=== PATIENT | male | born 1960 | race Two or more races ===

== ENCOUNTER → 2021-03-30 | Emergency (ER) | payer OTHER ==
[~2021-03-30] MED LIST: CITA10TA70 PO; DOXA1TAB42 PO; MIRT1TAB40 PO
== END | disposition left against medical advice (07) ==
LOC: ER 09:46
DX: Z04.3 Encounter for examination and observation following other accident (principal); Z53.21 Procedure and treatment not carried out due to patient leaving prior to being seen by health care provider; W19.XXXA Unspecified fall, initial encounter; Y93.89 Activity, other specified; Y92.89 Other specified places as the place of occurrence of the external cause; Y99.8 Other external cause status

== ENCOUNTER 2021-05-23 15:24 | Inpatient (IN) | payer OTHER ==
[~2021-05-23] VITALS: Ht 170.2 cm; Wt 94.1 kg
[2021-05-23 16:33] LABS: Basophils # (auto) 0.1 10 ^3/uL (0-0.2); Basophils % (auto) 1.1 % (0.0-2.0); Eosinophils # (auto) 0.3 10 ^3/uL (0-0.8); Hematocrit 40.4 % (41.0-53.0); Hemoglobin 13.3 g/dL (13.5-17.5); Lymphocytes # (auto) 3.2 10 ^3/uL (0.4-5.4); Lymphocytes % (auto) 43.4 % (10.0-50.0); Mean Corpuscular Hemoglobin 25.8 pg (28.0-32.0); Mean Corpuscular Hgb Conc. 32.8 g/dL (32.0-36.0); Mean Corpuscular Volume 78.7 fL (80.0-100.0); Monocytes # (auto) 0.6 10 ^3/uL (0-1.3); Monocytes % (auto) 8.6 % (0.0-12.0); Neutrophils # (auto) 3.2 10 ^3/uL (1.6-8.6); Neutrophils % (auto) 42.9 % (37.0-80.0); Red Blood Cells 5.13 10^6/uL (4.5-5.90); Red Cell Distribution Width 18.4 % (11.8-14.3); White Blood Cell 7.4 10^3/uL (4.4-10.8)
[2021-05-23 16:49] LABS: Albumin 3.7 g/dL (3.4-5.0); Anion Gap 5 (5-15); Blood Urea Nitrogen 10 mg/dL (7-18); Calcium 8.8 mg/dL (8.5-10.1); Carbon Dioxide 26 mmol/L (21-32); Chloride 107 mmol/L (98-107); Glucose 92 mg/dL (74-106); Magnesium 2.4 mg/dL (1.6-2.6); Potassium 4.1 mmol/L (3.5-5.1); Sodium 138 mmol/L (136-145)
[2021-05-23 16:55] LABS: Alanine Aminotransferase 34 U/L (16-61); Alkaline Phosphatase 114 U/L (45-117); Aspartate Aminotransferase 22 U/L (15-37); Bilirubin, Total 0.2 mg/dL (0.2-1.0); GFR African American 88 mL/min; GFR Non-African American 72 mL/min; Total Protein 7.9 g/dL (6.4-8.2)
[2021-05-23] MEDS ORDERED: ENOXAPARIN SOD 100 MG/1 ML SYRINGE SC ONE (18:15)
[2021-05-23] MEDS ORDERED: NITROGLYCERIN 0.4 MG SL TAB SL PRN (22:30)
[2021-05-23] MEDS ORDERED: HYDROmorphone HCL 2 MG/ML VL IV PRN (22:30)
[2021-05-23] MEDS ORDERED: HYDROcodone-ACET 5/325MG TAB PO PRN (22:30)
[2021-05-23] MEDS ORDERED: ACETAMINOPHEN 325 MG TAB PO PRN (22:30)
[2021-05-23] MEDS ORDERED: HEPARIN DRIP/D5W 100UNITS/ML 250 ML IV SCH (22:30)
[2021-05-23] MEDS ORDERED: MORPHINE SULFATE INJECTION 2 MG/ML SYRG IV PRN (22:30)
[2021-05-23] MEDS ORDERED: ONDANSETRON HCL 4 MG/2 ML VIAL IV PRN (22:30)
[2021-05-23 23:36] LABS: Basophils # (auto) 0.1 10 ^3/uL (0-0.2); Eosinophils # (auto) 0.4 10 ^3/uL (0-0.8); Mean Corpuscular Volume 78.9 fL (80.0-100.0); Neutrophils % (auto) 42.8 % (37.0-80.0); Nucleated Red Blood Cells % 0.1 %
[2021-05-23 23:37] LABS: Basophils % (auto) 1.4 % (0.0-2.0); Eosinophils % (auto) 4.1 % (0.0-7.0); Hematocrit 38.7 % (41.0-53.0); Hemoglobin 12.9 g/dL (13.5-17.5); Lymphocytes # (auto) 3.8 10 ^3/uL (0.4-5.4); Mean Corpuscular Hemoglobin 26.3 pg (28.0-32.0); Mean Corpuscular Hgb Conc. 33.3 g/dL (32.0-36.0); Monocytes # (auto) 0.8 10 ^3/uL (0-1.3); Monocytes % (auto) 8.7 % (0.0-12.0); Neutrophils # (auto) 3.8 10 ^3/uL (1.6-8.6); Red Blood Cells 4.91 10^6/uL (4.5-5.90); Red Cell Distribution Width 18.1 % (11.8-14.3); White Blood Cell 8.9 10^3/uL (4.4-10.8)
[2021-05-23 23:58] LABS: INR 1.04 (0.9-1.15); Partial Thromboplastin Time 26.1 sec (23.6-33.0)
[2021-05-24] MEDS ORDERED: HEPARIN SODIUM (PORCINE) 5000 UNITS/ML 1ML VIAL IV ONE (00:33)
[2021-05-24] MEDS: CITALOPRAM HYDROBR 20 MG TAB PO SCH (10:24)
[2021-05-24] MEDS ORDERED: IODIXANOL 320MG/ML 100ML BTL IV ONE ×3 (12:32→15:57)
[2021-05-24] MEDS ORDERED: LIDOCAINE 2%HCL (LOCAL ANESTH.) INJ 20ML MDV ONE ×2 (12:32→13:31)
[2021-05-24 13:03] LABS: INR 1.09 (0.9-1.15)
[2021-05-24] MEDS ORDERED: HEPARIN IN NS 1000Units/500mL 1,500 ML ONE (13:32)
[2021-05-24] MEDS ORDERED: fentaNYL CITRATE 100 MCG/2 ML VL ONE (14:28)
[2021-05-24] MEDS ORDERED: MIDAZOLAM HCL 2MG/2ML 2ml VIAL (1mg/ml) ONE ×2 (14:28→15:05)
[2021-05-24] MEDS ORDERED: HEPARIN DRIP/D5W 100UNITS/ML 250 ML IV ONE (14:31)
[2021-05-24] MEDS ORDERED: HEPARIN SODIUM (PORCINE) 5000 UNITS/ML 1ML VIAL ONE ×2 (15:24→16:00)
[2021-05-24] MEDS ORDERED: HYDROmorphone HCL 2 MG/ML VL ONE (15:25)
[2021-05-24] MEDS ORDERED: SODIUM CHLORIDE 0.9% 1,000 ML IV SCH (17:15)
[2021-05-24 22:00] VITALS: BP 108/74
[2021-05-24] MEDS ORDERED: ENOXAPARIN SOD 60 MG/0.6 ML SYRINGE SC ONE (22:00)
[2021-05-24] MEDS: DOXAZOSIN MESYL 2 MG TAB PO SCH (22:02)
[2021-05-24] MEDS: MIRTAZAPINE 30 MG TAB PO SCH (22:03)
[2021-05-25 05:00] VITALS: BP 112/66
[2021-05-25 07:20] LABS: Basophils # (auto) 0.1 10 ^3/uL (0-0.2); Eosinophils # (auto) 0.2 10 ^3/uL (0-0.8); Hemoglobin 12.2 g/dL (13.5-17.5); Mean Corpuscular Hemoglobin 25.8 pg (28.0-32.0); Mean Corpuscular Hgb Conc. 32.8 g/dL (32.0-36.0); Mean Corpuscular Volume 78.7 fL (80.0-100.0); Nucleated Red Blood Cells % 0.1 %
[2021-05-25 07:23] LABS: Basophils % (auto) 1.7 % (0.0-2.0); Eosinophils % (auto) 2.4 % (0.0-7.0); Hematocrit 37.1 % (41.0-53.0); Lymphocytes # (auto) 2.4 10 ^3/uL (0.4-5.4); Monocytes # (auto) 0.5 10 ^3/uL (0-1.3); Monocytes % (auto) 6.5 % (0.0-12.0); Neutrophils # (auto) 5.2 10 ^3/uL (1.6-8.6); Neutrophils % (auto) 61.4 % (37.0-80.0); Red Blood Cells 4.71 10^6/uL (4.5-5.90); Red Cell Distribution Width 17.7 % (11.8-14.3); White Blood Cell 8.5 10^3/uL (4.4-10.8)
[2021-05-25 07:34] LABS: INR 1.02 (0.9-1.15); Partial Thromboplastin Time 26.2 sec (23.6-33.0)
[2021-05-25 07:41] LABS: BUN/Creatinine Ratio 17.5; Calcium 8.9 mg/dL (8.5-10.1); Potassium 4.2 mmol/L (3.5-5.1)
[2021-05-25 09:00] VITALS: BP 118/75
[2021-05-25] MEDS: CITALOPRAM HYDROBR 20 MG TAB PO SCH (11:42)
[2021-05-25] MEDS: APIXABAN 5 MG TAB PO SCH ×2 (11:43→23:21)
[2021-05-25 13:00] VITALS: BP 110/66
[2021-05-25] MEDS ORDERED: PANTOPRAZOLE 40 MG TAB PO ONE (13:00)
[2021-05-25 17:00] VITALS: BP 109/75
[2021-05-25 20:00] VITALS: BP 108/74
[2021-05-25 22:00] VITALS: BP 105/68
[2021-05-25] MEDS: MIRTAZAPINE 30 MG TAB PO SCH (23:20)
[2021-05-25] MEDS: DOXAZOSIN MESYL 2 MG TAB PO SCH (23:21)
[2021-05-26 05:00] VITALS: BP 106/71
[2021-05-26] MEDS: APIXABAN 5 MG TAB PO SCH ×2 (08:00→21:44)
[2021-05-26 09:00] VITALS: BP 102/75
[2021-05-26] MEDS: PANTOPRAZOLE 40 MG TAB PO SCH (10:00)
[2021-05-26] MEDS: CITALOPRAM HYDROBR 20 MG TAB PO SCH (10:00)
[2021-05-26 13:00] VITALS: BP 119/82
[2021-05-26 17:26] VITALS: BP 121/75
[2021-05-26] MEDS: MIRTAZAPINE 30 MG TAB PO SCH (21:44)
[2021-05-26] MEDS: DOXAZOSIN MESYL 2 MG TAB PO SCH (21:44)
[2021-05-26 22:00] VITALS: BP 116/71
[2021-05-27 05:00] VITALS: BP 103/75
[2021-05-27] MEDS: APIXABAN 5 MG TAB PO SCH (08:19)
[2021-05-27] MEDS: CITALOPRAM HYDROBR 20 MG TAB PO SCH (08:20)
[2021-05-27] MEDS: PANTOPRAZOLE 40 MG TAB PO SCH (08:20)
[2021-05-27 09:00] VITALS: BP 114/76
[2021-05-27 10:49] VITALS: BP 114/76
[2021-06-01] MEDS ORDERED: APIXABAN 5 MG TAB PO SCH (08:00)
== END 2021-05-27 23:59 | DRG 272 ==
LOC: EEVIPCON 15:24 → ER 15:24 → OVERFLOW 22:28 → WEST WING 05-24 08:50
PROVIDERS: ADMIT Specialist; ATTEND Specialist
PROC: 06CM3ZZ Extirpation of Matter from Right Femoral Vein, Percutaneous Approach (ICD-10-PCS; principal; 2021-05-24)
PROC: 067F3ZZ Dilation of Right External Iliac Vein, Percutaneous Approach (ICD-10-PCS; 2021-05-24)
PROC: B51BYZZ Fluoroscopy of Right Lower Extremity Veins using Other Contrast (ICD-10-PCS; 2021-05-24)
PROC: B54BZZA Ultrasonography of Right Lower Extremity Veins, Guidance (ICD-10-PCS; 2021-05-24)
PROC: B519YZZ Fluoroscopy of Inferior Vena Cava using Other Contrast (ICD-10-PCS; 2021-05-24)
DX: I82.411 Acute embolism and thrombosis of right femoral vein (principal); E66.9 Obesity, unspecified; I82.431 Acute embolism and thrombosis of right popliteal vein; E78.5 Hyperlipidemia, unspecified; F32.9 Major depressive disorder, single episode, unspecified; F41.9 Anxiety disorder, unspecified; Z20.822 Contact with and (suspected) exposure to COVID-19; K21.9 Gastro-esophageal reflux disease without esophagitis; Z68.32 Body mass index [BMI] 32.0-32.9, adult
CPT/HCPCS: 34201; 36415; 75716; 76937; 80048; 80053; 83735; 83880; 84484; 85025; 85610; 85730; 87426; 93005; 93971; 96365; 96372; 96375; 99152; 99153; G0378; J2250; Q9967